=== PATIENT | female | born 1995 | race Caucasian/White ===

== ENCOUNTER → 2017-10-24 | Outpatient (CLI) | payer OTHER ==
--- NOTE | 2017-10-24 16:41 | RADIOLOGY REPORT PS360 ---
US PELVIS-TRANSVAGINAL ONLY HISTORY: LEFT LOWER QUAD PAIN ORDERING PHYSICIAN: Raudel Deluna MD PATIENT AGE: 22 years COMPARISON: 10/10/2008 FINDINGS: The uterus is retroverted and measures 6 x 3 x 4 cm with a combined endometrial thickness of 5 mm. No uterine mass evident. The left ovary is 2 x 1.6 cm. The right ovary is 2.2 x 1.6 cm. There are small follicles present. No dominant cyst. No cul-de-sac fluid. IMPRESSION: Retroverted uterus, otherwise negative pelvic ultrasound
[2017-10-31 03:41] LABS: Neisseria gonorrhoeae, NAA Negative (Negative)
== END ==
LOC: RAD 14:00
PROVIDERS: Nurse Practitioner Obstetrics & Gynecology
DX: R10.32 Left lower quadrant pain (principal)

== ENCOUNTER → 2017-10-26 | Outpatient (CLI) | payer OTHER ==
[~2017-10-26] MED LIST: MOTRIN 600MG.600 MG PO
== END ==
LOC: LAB 16:05
DX: Z72.51 High risk heterosexual behavior (principal)